=== PATIENT | male | born 1945 | race Caucasian/White ===

== ENCOUNTER → 2019-09-14 | Outpatient (CLI) | payer MEDICARE, OTHER ==
[~2019-09-14] MED LIST: AMLO2.5T5 PO; APIX5TAB3 PO; ASCO500C PO; ATOR10TA60 PO; DRON400T PO; EPLE50TA3 PO; LISI40TA PO; METF-658 PO; OMEG1CAP50 PO; UBID200C32 PO
== END | disposition home or self-care (01) ==
LOC: LAB 09:15
PROVIDERS: ATTEND Registered Nurse
DX: Z01.818 Encounter for other preprocedural examination (principal); Z11.59 Encounter for screening for other viral diseases; Z86.010 Personal history of colon polyps
CPT/HCPCS: C9803; U0003; 36415

== ENCOUNTER → 2019-09-18 | Day surgery (SDC) | payer MEDICARE, OTHER ==
[~2019-09-18] MED LIST changes: +IPRATRPIUM/ALBUTEROL 0.5/2.5MG 3 ML NEBU. NEB PRN; +IV RINGERS SOLUTION,LACTATED 1,000 ML IV SCH; +MIDAZOLAM HCL PF 2 MG/2 ML VIAL. IV ONE; +PROPOFOL 10,000 MCG/ML (20ML) VIAL IV ONE
[2019-09-18 10:46] VITALS: BP 105/73
--- NOTE | 2019-09-19 16:07 | PATHOLOGY ---
[facility] Accession Number: [id number] . 01 Material submitted: . PART A: colon - TRANSVERSE COLON POLYP. Modifiers: transverse PART B: sigmoid colon - SIGMOID COLON POLYP . 01 Clinical history: . None provided . 02 Diagnosis: A. Colon biopsies, transverse colon polyp: - Tubular adenomas (2). . B. Colon biopsy, sigmoid colon polyp: - Sessile serrated polyp/adenoma. LBQ 09/19/2019 1042 Local . 02 Comment: There is no high grade dysplasia or evidence of evidence of malignancy. (JPM/db; 09/19/2019) . 02 Electronically signed: . Gabriel Soto MD, Pathologist NPI- [id number] . 01 Gross description: . A. The specimen is received in formalin, labeled "Peter Sakach, transverse polyp". Received are two segments of pale tineo soft tissue ranging in size from 0.4 to 0.6 cm in maximum dimensions. The specimen is submitted entirely in cassette A1. . B. The specimen is received in formalin, labeled "Peter Sakach, sigmoid polyp". Received is a segment of light brown soft tissue measuring 1.3 x 0.5 x 0.4 cm in greatest dimensions. The surgical margin is inked and the segment is bisected. The specimen is submitted entirely in cassette B1. Due to the nature of the specimen, fragmentation has occurred upon sectioning. (CAA; 09/18/2019) QAC/QAC 09/18/2019 1916 Local . 02 Pathologist provided ICD-10: D12.3, D12.5 . 02 CPT . 468564, [id number] Specimen Comment: A courtesy copy of this report has been sent to [phone] Specimen Comment: [id number] Specimen Comment: Report sent to Specimen Comment: A duplicate report has been generated due to demographic updates. Performed at: [facility] [address] [id number] MD Eddie Noe MD Phone: [phone] Performed at: 02 [facility] [address] [place], [place] [id number] MD Gabriel Soto MD Phone: [phone]
== END ==
LOC: SURG 06:44
PROVIDERS: ATTEND Emergency Medicine
DX: Z12.11 Encounter for screening for malignant neoplasm of colon (principal); D12.3 Benign neoplasm of transverse colon; D12.5 Benign neoplasm of sigmoid colon; K57.30 Diverticulosis of large intestine without perforation or abscess without bleeding; I48.91 Unspecified atrial fibrillation; I12.9 Hypertensive chronic kidney disease with stage 1 through stage 4 chronic kidney disease, or unspecified chronic kidney disease; E11.22 Type 2 diabetes mellitus with diabetic chronic kidney disease; N18.2 Chronic kidney disease, stage 2 (mild); J44.9 Chronic obstructive pulmonary disease, unspecified; Z87.891 Personal history of nicotine dependence; Z86.010 Personal history of colon polyps; Z87.39 Personal history of other diseases of the musculoskeletal system and connective tissue; Z79.84 Long term (current) use of oral hypoglycemic drugs
CPT/HCPCS: 45385; J2704; J7120; 88305